=== PATIENT | male | born 2000 | race Caucasian/White ===

== ENCOUNTER 2020-12-18 13:41 | Emergency (ER) | payer OTHER, SELFPAY ==
[2020-12-18 13:47] VITALS: BP 104/62; PULSE 80; RESP 22; TEMP 36.6; O2SAT 97
--- NOTE | 2020-12-18 13:52 | DI.RAD.S_ITS ---
PROCEDURE: XR CHEST 1V INDICATIONS: cough, production of sputum TECHNIQUE: One view of the chest was acquired. COMPARISON: None. FINDINGS: Surgical changes and devices: None. Lungs and pleura: Lungs are clear. No pleural effusions or pneumothorax. Mediastinum: Mediastinal contours appear normal. Heart size is normal. Bones and chest wall: No suspicious bony lesions. Overlying soft tissues appear unremarkable. IMPRESSION: No acute disease. Dictated by: Pritesh Irvin M.D. on 12/18/2020 at 14:41 Approved by: Pritesh Irvin M.D. on 12/18/2020 at 14:41
--- NOTE | 2020-12-18 14:02 | ED.URI ---
HPI - URI/Sore Throat General Chief Complaint: Upper Respiratory Symptoms Stated Complaint: cough, wheezing,chest hurts, Time Seen by Provider: 12/18/20 13:43 Source: patient Mode of arrival: Ambulatory History of Present Illness HPI Narrative: 20M smoker with history of asthma presents with upper respiratory symptoms including runny nose, sneezing, cough and sharp anterior chest pain associated with cough. He has had no recent travel, history of blood clot. He has been vaccinated against COVID denies any exposure to ill persons. He is not dizzy nor weak or lightheaded. Related Data Previous Rx's Medication Instructions Recorded albuterol sulfate 90 mcg/actuation 2 puff INHALATION Q4H PRN #1 each 12/18/20 breath activated powder inhaler benzonatate 100 mg capsule 100 mg PO TID PRN #14 cap 12/18/20 (Kuldip Bernard) Review of Systems Review of Systems Narrative: GENERAL: Denies chills, fatigue, malaise, fever, sweats. HEENT: see HPI RESPIRATORY: see HPI CARDIOVASCULAR: Denies chest pain, palpitations, orthopnea, edema, GASTROINTESTINAL: Denies nausea, vomiting, abdominal pain, diarrhea, constipation, melena. : Denies dysuria, frequency, incontinence, hematuria, urinary retention. MUSCULOSKELETAL: denies weakness, joint pain, or bony pain SKIN: Denies rash, skin lesions, or other NEUROLOGIC: Denies weakness, headache, numbness, change in speech, confusion, seizures, incoordination. PSYCHIATRIC: No concerning psychosocial issues. 12 point review of systems is negative except for those stated above Patient History Social History Smoking Status: Current every day smoker Smoking Status: Current every day smoker tobacco type: vaping Exam Narrative Exam Narrative: GEN: AOx3 and in mild distress EYES: Pupils are equal, round, and reactive to light and accommodation. Extraoccular muscles are intact bilaterally. There is no subconjunctival hemorrhage or exudate. CHEST: Lungs are clear to auscultation bilaterally and free of wheezes, rales, or rhonchi. Heart rate is regular rhythm, there are no murmurs, clicks, rubs, or gallops. There is no chest wall tenderness. Frequent dry cough, no evidence of respiratory distress such as use of intercostals, nasal flaring, tachypnea or other ABD: Abdomen is soft and nontender. There is no guarding or rebound. Bowel sounds are normal in all 4 quadrants. There is no mass or organomegaly. EXT: Full painless ROM of all extremities with no loss of sensation or strength. SKIN: Warm, pink, and dry. No erythema or rash Initial Vital Signs Initial Vital Signs: Vital Signs Temperature 97.8 F 12/18/20 13:47 Pulse Rate 80 12/18/20 13:47 Respiratory Rate 22 12/18/20 13:47 Blood Pressure 104/62 12/18/20 13:47 Pulse Oximetry 97 12/18/20 13:47 Course Orders Ordered: ED Orders 12/18/20 13:52 XR chest 1V Stat 12/18/20 14:04 COVID19 -Nasal swab/Pre-Proc Stat Vital Signs Vital signs: Vital Signs - 8 hr 12/18/20 13:47 Temperature 97.8 F Pulse Rate 80 Respiratory Rate 22 Blood Pressure 104/62 Pulse Oximetry 97 MDM - URI/Sore Throat Lab Data Labs: Lab Results 12/18/20 Range/Units 14:09 SARS-CoV-2 (PCR) Negative (Negative) Discharge Plan Departure Patient Disposition: Home Clinical Impression: Upper respiratory infection Qualifiers: URI type: unspecified viral URI Qualified Code(s): J06.9 - Acute upper respiratory infection, unspecified Instructions: DI for Viral Upper Respiratory Infection -- Adult Activity Restrictions/Additional Instructions: *You have been diagnosed with [viral upper respiratory infection, your COVID test was negative and chest x-ray is reassuring *What to do: *Please continue to take your regular medications as directed. [ ] New medication prescriptions sent to your pharmacy: [ ] [x ] New medication written as a paper prescription [ ] No new medications given *Please follow up with your primary care provider in 2-3 days, call for an appointment. Let them know you were seen in the Emergency Department and that we ask that you be seen in follow up. We will electronically transmit a record of today's note if your PCP is in our system *If you do not have a primary care provider please contact the [facility] Resource line at [phone]. They will ask some questions about your medical history and help get you set up with a doctor in the community. *Return to Emergency Department if you should have any new, worsening or concerning symptoms, such as [fever greater than 101 F, shaking chills, worsening pain, persistent vomiting or other bothersome symptoms] Prescriptions: New benzonatate [Tessalon Perles] 100 mg capsule 100 mg PO TID PRN (Reason: cough) Qty: 14 RF: 0 albuterol sulfate 90 mcg/actuation aerosol powdr breath activated 2 puff INHALATION Q4H PRN (Reason: shortness of breath or wheezing) Qty: 1 RF: 0 Referrals: Kassandra Rizvi [Other]
[2020-12-18 14:27] LABS: COVID19 -Nasal RAPID Negative (Negative)
== END 2020-12-18 14:45 | disposition home or self-care (01) ==
PROVIDERS: Emergency Provider Emergency Medicine
DX: J06.9 Acute upper respiratory infection, unspecified (principal); R05 Cough; Z20.822 Contact with and (suspected) exposure to COVID-19
CPT/HCPCS: 71045; 87635; 99281; 99283; C9803